=== PATIENT | male | born 1975 | race African-American/Black ===

== ENCOUNTER 2017-05-06 09:44 | Emergency (ER) | payer OTHER ==
[~2017-05-06] VITALS: Ht 182.9 cm; Wt 97.2 kg
[~2017-05-06 09:44] MED LIST: CIPRO HC OTIC S10 ML RIGHT EAR; CLEOCIN300 MG PO
[2017-05-06] MEDS ORDERED: ULTRAM50 MG PO (10:11)
[2017-05-06] MEDS ORDERED: PREDNISONE20 MG PO (10:11)
[2017-05-06 10:28] VITALS: BP 162/98
== END 2017-05-06 10:32 | disposition home or self-care (01) ==
LOC: EME 09:44
DX: M54.41 Lumbago with sciatica, right side (principal); F17.200 Nicotine dependence, unspecified, uncomplicated
CPT/HCPCS: 99281; 99284; J7512

== ENCOUNTER 2017-11-07 15:01 | Observation (INO) | payer OTHER ==
[~2017-11-07] VITALS: Ht 180.3 cm; Wt 91.7 kg
[~2017-11-07 15:01] MED LIST changes: +PREDNISONE20 MG PO; +ULTRAM50 MG PO
[2017-11-07 15:56] LABS: BASOPHIL (%) 0.7 % (0-1); BASOPHIL COUNT 0.1 K/uL (0-0.1); EOSINOPHIL (%) 0.2 % (0-5); HEMATOCRIT 44.1 % (38.0-50.0); HEMOGLOBIN 15.7 G/DL (12.5-16.6); IMMATURE GRANULOCYTE (%) 0.2 % (0.0-0.7); LYMPHOCYTE (%) 22.2 % (15-42); MCHC 35.6 G/DL (30.0-36.0); MCV 87.2 FL (86-99); MONOCYTE (%) 5.2 % (3-12); MONOCYTE COUNT 0.5 K/uL (0-0.8); NEUTROPHIL (%) 71.5 % (45-76); NEUTROPHIL COUNT 6.3 K/uL (1.8-6.4); PLATELET COUNT 270 K/uL (156-360); RBC DIS.WIDTH-CV 12.8 % (11.8-14.6); RBC DIS.WIDTH-SD 40.5 % (39-53); RED BLOOD COUNT 5.06 M/uL (4.00-5.50); WHITE BLOOD COUNT 8.8 K/uL (4.1-10.2)
[2017-11-07 16:01] LABS: INTER. NORMALIZED RATIO 1.2
[2017-11-07 16:04] LABS: CHLORIDE 103 mEq/L (99-109); POTASSIUM 3.4 mEq/L (3.7-5.4); PTT 24.6 SEC (25-37); SODIUM 140 mEq/L (136-147)
[2017-11-07 16:05] LABS: GLUCOSE 108 mg/dL (70-99)
[2017-11-07 16:09] LABS: GFR ESTIMATE (CALCULATED) > 59 mL/min/ (58.99-99999)
[2017-11-07 16:10] LABS: UREA NITROGEN (BUN) 11 mg/dL (9-23)
[2017-11-07 16:16] LABS: TROP-I INTERPRETATION NEGATIVE; TROPONIN-I < 0.01 ng/mL (0.0-0.30)
[2017-11-07 16:45] LABS: HDL CHOLESTEROL 31 MG/DL (Desirable>=40); LDL CHOLESTEROL 34 mg/dL (Desirable<100); NON-HDL CHOLESTEROL 50 mg/dL (Desirable<160); TOTAL CHOLESTEROL 81 mg/dL (Desirable<200); TRIGLYCERIDES 82 MG/DL (Normal: <150)
[2017-11-07 18:25] LABS: AMPHETAMINE NEGATIVE (500 ng/mL); BARBITURATES NEGATIVE (200 ng/mL); BENZODIAZEPINES NEGATIVE (150 ng/mL); BUPRENORPHINE NEGATIVE (10 ng/mL); COCAINE NEGATIVE (150 ng/mL); METHADONE NEGATIVE (200 ng/mL); METHAMPHETAMINE NEGATIVE (500 ng/mL); OPIATES (MORPHINE) NEGATIVE (100 ng/mL); OXYCODONE NEGATIVE (100 ng/mL); PHENCYCLIDINE NEGATIVE (25 ng/mL); PROPOXYPHENE NEGATIVE (300 ng/mL); THC CANNABINOIDS PRESUMPTIVE POSITIVE (50 ng/mL); TRICYCLIC ANTIDEPRESSANTS NEGATIVE (300 ng/mL)
[2017-11-07 19:28] LABS: APPEARANCE CLEAR ((CLEAR)); BILIRUBIN NEGATIVE; BLOOD NEGATIVE; COLOR YELLOW ((YELLOW)); GLUCOSE (STRIP) NEGATIVE; KETONES NEGATIVE; LEUKOCYTES NEGATIVE; NITRITE NEGATIVE; PROTEIN (STRIP) NEGATIVE; SPECIFIC GRAVITY 1.013 (1.000-1.030); UCUL ADDED? NO
[2017-11-07] MEDS ORDERED: TYLENOL EXTRA500 MG PO (21:01)
[2017-11-07] MEDS ORDERED: CLARITIN,ALAVAR10 MG PO (21:02)
[2017-11-07] MEDS ORDERED: MOTRIN IB200 MG PO (21:02)
[2017-11-07] MEDS ORDERED: FLONASE16 G1 BOTH NARES (21:03)
[2017-11-07 22:32] LABS: TROP-I INTERPRETATION NEGATIVE; TROPONIN-I < 0.01 ng/mL (0.0-0.30)
[2017-11-07 22:52] VITALS: BP 156/92
[2017-11-08 04:08] VITALS: BP 134/80
[2017-11-08 05:44] LABS: TROP-I INTERPRETATION NEGATIVE; TROPONIN-I 0.03 ng/mL (0.0-0.30)
[2017-11-08 06:13] LABS: ALBUMIN 4.1 G/DL (3.2-4.8); ALKALINE PHOSPHATASE 76 IU/L (3-129); ALT (GPT) 11 IU/L (3-49); AST (GOT) 11 IU/L (2-34); CHLORIDE 104 MEQ/L (99-109); GFR ESTIMATE (CALCULATED) > 59 mL/min/ (58.99-99999); GLUCOSE 130 mg/dL (70-99); POTASSIUM 3.1 MEQ/L (3.7-5.4); SODIUM 140 MEQ/L (136-147); TOTAL BILIRUBIN 0.8 MG/DL (0.0-1.0); TOTAL PROTEIN 6.8 G/DL (6.4-8.3); UREA NITROGEN (BUN) 13 mg/dL (9-23)
[2017-11-08 09:00] VITALS: BP 147/94
[2017-11-08 10:37] VITALS: BP 160/84
[2017-11-08] MEDS ORDERED: LOPRESSOR25 MG PO (11:52)
[2017-11-08] MEDS ORDERED: BUTALB-APAP-CA1 EACH PO (11:52)
[2017-11-08 11:59] LABS: TROP-I INTERPRETATION NEGATIVE; TROPONIN-I < 0.01 ng/mL (0.0-0.30)
[2017-11-08 12:38] LABS: HEMOGLOBIN A1c (GLYCOHEMOGLOB) 6.1 % (Below 5.7)
== END 2017-11-08 15:02 | disposition home or self-care (01) ==
LOC: EME 15:01 → 4SOUTH 21:37 → EDOF 21:37 → ENRESERV 21:38 → 4SOUTH 22:39
PROVIDERS: Emergency Medicine; Internal Medicine; Physician Assistant
DX: R07.9 Chest pain, unspecified (principal); R51 Headache; I10 Essential (primary) hypertension; R42 Dizziness and giddiness; R11.2 Nausea with vomiting, unspecified; R06.02 Shortness of breath; H53.8 Other visual disturbances; F17.210 Nicotine dependence, cigarettes, uncomplicated
CPT/HCPCS: 70450; 70496; 71045; 80048; 80053; 80061; 81003; 83036; 83880; 84484; 84999; 85025; 85610; 85730; 93005; 99281; 99285; G0378; J0360; J1644; J2405